=== PATIENT | female | born 1955 | race Caucasian/White ===

== ENCOUNTER 2018-07-27 13:56 | Emergency (ER) | payer OTHER ==
[2018-07-27 14:17] VITALS: TEMP 98.1; BMI 24.7
[2018-07-27] MEDS ORDERED: VALSARTAN 80 MG TABLET (UD) PO ONE (15:36)
--- NOTE | 2018-07-27 15:42 | PDOC ---
History of Present Illness <Moises Oconnor - Last Filed: 07/27/18 18:46> - General History Source: Patient Exam Limitations: No Limitations - History of Present Illness Initial Comments: 07/27/18 15:38 The patient is a 63F with a PMH of HTN (takes no meds) who presents to the ER with complaints of R leg pain. The patient states that she felt a gradual onset of sharp pain in her R calf. The pain started "out of nowhere" and has worsened to her presentation today. She states that nothing alleviates the pain but it is exacerbated by walking. She denies fever, chills, CP, SOB. She denies long car rides or plane trips, hx of cancer, smoking, hx of DVT/PE, hemoptysis. <Rd Mccain - Last Filed: 07/30/18 08:12> - General Chief Complaint: Pain Stated Complaint: RIGHT LEG PAIN Time Seen by Provider: 07/27/18 14:03 Past History <Moises Oconnor - Last Filed: 07/27/18 18:46> - Past Medical History Anemia: No Asthma: No Cancer: No Cardiac Disorders: No CVA: No COPD: No CHF: No Dementia: No Diabetes: No GI Disorders: No Disorders: No HTN: Yes Hypercholesterolemia: No Liver Disease: No Seizures: No Thyroid Disease: No Other medical history: VARICOSE VEINS - Surgical History Abdominal Surgery: No Appendectomy: No Cardiac Surgery: No Cholecystectomy: No Lung Surgery: No Neurologic Surgery: No Orthopedic Surgery: No - Immunization History Td Vaccination: No - Suicide/Smoking/Psychosocial Hx Smoking Status: No Smoking History: Former smoker Have you smoked in the past 12 months: Yes Number of Cigarettes Smoked Daily: 3 Information on smoking cessation initiated: No Hx Alcohol Use: Yes (OCCASSIONAL) Drug/Substance Use Hx: No Substance Use Type: Alcohol Hx Substance Use Treatment: No <Rd Mccain - Last Filed: 07/30/18 08:12> - Past Medical History Allergies/Adverse Reactions: Allergies Allergy/AdvReac Type Severity Reaction Status Date / Time No Known Allergies Allergy Verified 07/27/18 13:57 Home Medications: Ambulatory Orders Cholecalciferol (Vitamin D3) [Vitamin D] 2,000 unit PO DAILY 07/27/18 Losartan Potassium [Cozaar -] 50 mg PO DAILY #30 tablet 07/27/18 Review of Systems - Review of Systems Able to Perform ROS?: Yes Comments:: 07/27/18 17:46 GENERAL/CONSTITUTIONAL: No fever or chills. No weakness. HEAD, EYES, EARS, NOSE AND THROAT: No change in vision. No ear pain or discharge. No sore throat. CARDIOVASCULAR: No chest pain, palpitations, or lightheadedness. RESPIRATORY: No cough, wheezing, shortness of breath, or hemoptysis. GASTROINTESTINAL: No nausea, vomiting, diarrhea, constipation, or abdominal pain. GENITOURINARY: No dysuria, frequency, hematuria, or change in urination. MUSCULOSKELETAL: Positive for R calf pain. No joint or muscle swelling or pain. No neck or back pain. SKIN: No rash or lesions. NEUROLOGIC: No headache, numbness, tingling, focal weakness, loss of consciousness, or change in strength/sensation. ENDOCRINE: No increased thirst. No abnormal weight change. HEMATOLOGIC/LYMPHATIC: No anemia, easy bleeding, or history of blood clots. ALLERGIC/IMMUNOLOGIC: No hives or skin allergy. Is the patient limited [place] Citizen proficient: No <Rd Mccain - Last Filed: 07/30/18 08:12> *Physical Exam - Vital Signs Last Vital Signs Temp Pulse Resp BP Pulse Ox 98.1 F 76 20 206/82 100 07/27/18 13:57 07/27/18 13:57 07/27/18 13:57 07/27/18 13:57 07/27/18 13:57 <Moises Oconnor - Last Filed: 07/27/18 18:46> - Vital Signs Last Vital Signs Temp Pulse Resp BP Pulse Ox 98.1 F 76 20 206/82 100 07/27/18 13:57 07/27/18 13:57 07/27/18 13:57 07/27/18 13:57 07/27/18 13:57 - Physical Exam Comments: 07/27/18 17:47 GENERAL: Well developed, well nourished. Awake and alert. No acute distress. HEENT: Normocephalic, atraumatic. Hearing grossly normal. Moist mucous membranes. PERRLA, EOMI. No conjunctival pallor. Sclera are non-icteric. NECK: Supple. Full ROM. No JVD. CARDIOVASCULAR: Regular rate and rhythm. No murmurs, rubs, or gallops. PULMONARY: No evidence of respiratory distress. Lungs clear to auscultation bilaterally. No wheezing, rales or rhonchi. ABDOMINAL: Soft. Non-tender. Non-distended. No rebound or guarding. GENITOURINARY: No CVA tenderness bilaterally. MUSCULOSKELETAL: Normal range of motion at all joints. No bony deformities or tenderness. EXTREMITIES: No cyanosis. No clubbing. No edema. TTP over R calf. Negative Holcomb's test. SKIN: Warm and dry. Normal capillary refill. No rashes. No jaundice. NEUROLOGICAL: Alert, awake, appropriate. Cranial nerves 2-12 intact. Normal speech. Gait is normal without ataxia. PSYCHIATRIC: Cooperative. Good eye contact. Appropriate mood and affect. <Rd Mccain - Last Filed: 07/30/18 08:12> ED Treatment Course - Medications Given in the ED: ED Medications Discontinued Medications Generic Name Dose Route Start Last Admin Trade Name Freq PRN Reason Stop Dose Admin Valsartan 80 mg 07/27/18 15:36 07/27/18 16:04 Diovan - PO 07/27/18 15:37 80 mg ONCE ONE Administration <Moises Oconnor - Last Filed: 07/27/18 18:46> - RADIOLOGY Radiology Studies Ordered: Category Date Time Status DUPLEX VASCUL US-1 LEG [US] Stat Ultrasound 07/27/18 14:19 Taken <Rd Mccain - Last Filed: 07/30/18 08:12> Medical Decision Making - Medical Decision Making 07/27/18 17:47 The patient is a 63F with a PMH of untreated HTN who presents to the ER with complaints of R calf pain. Negative by Well's criteria for DVT/PE. U/S reveals small cummins's cyst w/o DVT. Pt noted to be hypertensive. Will give dose of prior medications and reassess. 07/27/18 18:11 Pt remains hypertensive. Will give 5 amlodipine and reassess. 07/27/18 19:07 Pt signed out to Dr. Currie for further care. <Rd Mccain - Last Filed: 07/30/18 08:12> *DC/Admit/Observation/Transfer <Moises Oconnor - Last Filed: 07/27/18 18:46> <Rd Mccain - Last Filed: 07/30/18 08:12> Diagnosis at time of Disposition: Essential hypertension, Leg pain - Discharge Dispostion Disposition: HOME Condition at time of disposition: Stable - Prescriptions Prescriptions: Losartan Potassium [Cozaar -] 50 mg PO DAILY #30 tablet - Referrals Referrals: Ty Heart MD [Non Staff, Medical] - - Patient Instructions Printed Discharge Instructions: Intermittent Claudication (Alternative Therapy) Additional Instructions: Your leg pain may be due to something called "claudication", a condition caused by poor circulation. Follow up with a vascular surgeon within 1 week. Call the number provided to make an appointment. I have sent a prescription [facility] pharmacy for losartan you'll take one tablet a day. Follow up with your primary care doctor this Monday as scheduled. You MUST have your blood pressure rechecked and have your medications adjusted. Your blood pressure today was extremely elevated. Uncontrolled blood pressure can lead to serious illness, including heart disease or kidney disease, or even . If you experience chest pain, shortness of breath, or any other concerning symptoms, return to the ER immediately.
--- NOTE | 2018-07-27 15:53 | PDOC ---
Attending Attestation - Resident Resident Name: Rd Mccain - ED Attending Attestation I have performed the following: I have examined & evaluated the patient, The case was reviewed & discussed with the resident, I agree w/resident's findings & plan, Exceptions are as noted - HPI HPI: 07/27/18 15:42 63 F with h/o HTN presenting to ED with RLE pain x 5 days. Pt denies any injury or trauma to the leg. She states that she feels a pulling sensation from the back of her thigh down to her calf. It is only present when she walks or goes up stairs. At rest, the pain resolves completely. Pt endorses mild swelling to the knee but does not note any swelling around her ankle. Denies numbness/ tingling in her leg. Denies CP/SOB. Denies recent travel/immobilization. Not on hormone therapy. Pt found to be hypertensive in ED to 206/82. Pt notes that she was previously on Benicar but stopped taking it when her insurance ran out. She has an appointment with her PMD this Monday. Pt denies CP/SOB/headache. - Physicial Exam PE: 07/27/18 15:53 "GENERAL: Awake, alert, and fully oriented, in no acute distress. HEAD: No signs of trauma EYES: PERRLA, EOMI, sclera anicteric, conjunctiva clear ENT: Auricles normal inspection, hearing grossly normal, nares patent, oropharynx clear without exudates. Moist mucosa NECK: Nontender, no stepoffs, Normal ROM, supple, no lymphadenopathy, JVD, or masses LUNGS: Breath sounds equal, clear to auscultation bilaterally. No wheezes, and no crackles HEART: Regular rate and rhythm, normal S1 and S2, no murmurs, rubs or gallops ABDOMEN: Soft, nontender, normoactive bowel sounds. No guarding, no rebound. No masses EXTREMITIES: + normal pulses bilaterally, Normal range of motion, no edema. No clubbing or cyanosis. No cords, erythema, or tenderness NEUROLOGICAL: Cranial nerves II through XII intact. 5/5 strength and sensation in all extremities, Normal speech, normal gait, normal cerebellar function SKIN: Warm, Dry, normal turgor, no rashes or lesions noted." - Medical Decision Making 07/27/18 15:54 63 F with RLE pain. Possible claudication as pain is worsened with exertion and relieved by rest. Will r/o DVT with doppler. Pt with no h/o trauma or external signs of injury. Pt's BP elevated in ED today, likely due to noncompliance with BP meds. Pt with no CP/SOB/headache or other clinical signs of hypertensive emergency. - Doppler to r/o DVT - Home dose ARB 07/27/18 15:57 Doppler shows small cummins's cyst, negative for DVT. 07/27/18 17:56 BP rechecked after valsartan - continues to be elevated 210s systolic. Will give amlodipine 5mg at this time. Pt signed out to Dr. Currie at 7PM, pending reassessment of vitals and re- evaluation.
[2018-07-27] MEDS ORDERED: amLODIPine BESYLATE 5 MG TABLET (FP) PO ONE (17:56)
[2018-07-27] MEDS ORDERED: amLODIPine BESYLATE 5 MG TABLET (FP) ONE (18:19)
[2018-07-27 18:22] VITALS: PULSE 67
[2018-07-27] MEDS ORDERED: ALPRAZolam 1 MG TABLET PO PRN (19:05)
[2018-07-27] MEDS ORDERED: ALPRAZolam 0.25 MG TABLET ONE (19:09)
[2018-07-27] MEDS ORDERED: cloNIDine HCL 0.1 MG TABLET PO ONE (19:13)
[2018-07-27] MEDS ORDERED: cloNIDine HCL 0.1 MG TABLET ONE (19:14)
[2018-07-27 19:57] VITALS: BP 178/88
--- NOTE | 2018-07-27 19:59 | PDOC ---
*Physical Exam - Vital Signs Last Vital Signs Temp Pulse Resp BP Pulse Ox 98.1 F 67 18 178/88 100 07/27/18 13:57 07/27/18 16:20 07/27/18 16:20 07/27/18 19:57 07/27/18 13:57 ED Treatment Course - Medications Given in the ED: ED Medications Discontinued Medications Generic Name Dose Route Start Last Admin Trade Name Mariella PRN Reason Stop Dose Admin Amlodipine Besylate 5 mg 07/27/18 17:56 07/27/18 18:20 Norvasc - PO 07/27/18 17:57 5 mg ONCE ONE Administration Clonidine 0.2 mg 07/27/18 19:13 07/27/18 19:15 Catapres - PO 07/27/18 19:14 0.2 mg ONCE ONE Administration Valsartan 80 mg 07/27/18 15:36 07/27/18 16:04 Diovan - PO 07/27/18 15:37 80 mg ONCE ONE Administration Progress Note - Progress Note Progress Note: Care of this patient was transferred to me from at 1900 hrs. Patient is a 63-year-old female who is noncompliant with her blood pressure medication. Patient was noted to have an elevated blood pressure that was incidental finding as her primary reason for visiting the emergency room was right lower extremity discomfort. Patient had an ultrasound Doppler that was negative for DVT. Patient was given medication to lower her blood pressure and at the time I assumed care of the patient her blood pressure was still over 200 systolic. I gave patient some Xanax and clonidine 0.2 mg repeat blood pressure approximately one half hour later was 176 systolic. Patient is without any complaints of symptoms suggestive of any end organ failure. Patient discharged home a prescription for losartan and told to follow-up with her primary care doctor for reevaluation of her blood pressure and management of her hypertension. *DC/Admit/Observation/Transfer Diagnosis at time of Disposition: Essential hypertension Leg pain Qualifiers: Laterality: right Qualified Code(s): M79.604 - Pain in right leg - Discharge Dispostion Disposition: HOME Condition at time of disposition: Stable - Referrals Referrals: Ty Heart MD [Non Staff, Medical] - - Patient Instructions Printed Discharge Instructions: Intermittent Claudication (Alternative Therapy) Additional Instructions: Your leg pain may be due to something called "claudication", a condition caused by poor circulation. Follow up with a vascular surgeon within 1 week. Call the number provided to make an appointment. I have sent a prescription [facility] pharmacy for losartan you'll take one tablet a day. Follow up with your primary care doctor this Monday as scheduled. You MUST have your blood pressure rechecked and have your medications adjusted. Your blood pressure today was extremely elevated. Uncontrolled blood pressure can lead to serious illness, including heart disease or kidney disease, or even . If you experience chest pain, shortness of breath, or any other concerning symptoms, return to the ER immediately. - Post Discharge Activity
== END 2018-07-27 20:11 | disposition home or self-care (01) ==
LOC: FER 13:56
DX: I10 Essential (primary) hypertension (principal); M79.604 Pain in right leg
CPT/HCPCS: 93971-TC; 99282-25; J0735

== ENCOUNTER 2024-05-12 12:48 | Emergency (ER) | payer OTHER ==
[2024-05-12 13:13] VITALS: BP 157/80; PULSE 72; RESP 20; TEMP 98; BMI 24.7
== END 2024-05-12 14:31 | disposition home or self-care (01) ==
LOC: FER 12:48
DX: S46.912A Strain of unspecified muscle, fascia and tendon at shoulder and upper arm level, left arm, initial encounter (principal); M54.2 Cervicalgia; X58.XXXA Exposure to other specified factors, initial encounter
CPT/HCPCS: 73030-TC-LT-FY; 99283-25

== ENCOUNTER 2024-10-20 13:43 | Emergency (ER) | payer OTHER ==
[2024-10-20 14:09] VITALS: BP 153/69; PULSE 72; RESP 18; TEMP 98.4; BMI 24.7
[2024-10-20] MEDS ORDERED: KETOROLAC TROMETHAMINE 30 MG/1 ML VIAL ONE (15:21)
[2024-10-20] MEDS: KETOROLAC TROMETHAMINE 15 MG/ML VIAL IM ONE (15:25)
[2024-10-20] MEDS: LIDOCAINE 5% TOPICAL PATCH TP ONE (15:27)
[2024-10-20] MEDS ORDERED: LIDOCAINE 5% TOPICAL PATCH ONE (15:27)
[2024-10-20] MEDS ORDERED: LIDOCAINE PATCH REMOVAL MC SCH (22:00)
== END 2024-10-20 17:53 | disposition home or self-care (01) ==
LOC: FER 13:43
PROC: 3E0133Z Introduction of Anti-inflammatory into Subcutaneous Tissue, Percutaneous Approach (ICD-10-PCS; principal; 2024-10-20)
DX: M79.605 Pain in left leg (principal)
CPT/HCPCS: 93971-TC; 96372; 99284-25